=== PATIENT | male | born 1965 | race Caucasian/White ===

== ENCOUNTER 2017-03-16 09:08 | Day surgery (SDC) | payer OTHER ==
[2017-03-15 15:09] VITALS: BMI 22.1
[2017-03-16] MEDS ORDERED: LIDOCAINE HCL/PF 2% SDV 5ML VIAL ONE (09:56)
[2017-03-16] MEDS ORDERED: PROPOFOL 20 ML ONE ×2 (09:56)
[2017-03-16 10:32] VITALS: TEMP 97.6
[2017-03-16 11:26] VITALS: BP 135/87; PULSE 63
== END 2017-03-16 11:26 | disposition home or self-care (01) ==
LOC: JASU-ENDO 09:08
PROVIDERS: ATTEND Internal Medicine Gastroenterology
PROC: 0DJD8ZZ Inspection of Lower Intestinal Tract, Via Natural or Artificial Opening Endoscopic (ICD-10-PCS; principal; 2017-03-16 10:00)
DX: Z12.11 Encounter for screening for malignant neoplasm of colon (principal); Z21 Asymptomatic human immunodeficiency virus [HIV] infection status

== ENCOUNTER 2022-12-03 12:46 | Emergency (ER) | payer OTHER ==
[2022-12-03 12:52] VITALS: BP 165/92; PULSE 78; RESP 18; TEMP 98.8; BMI 23.8
[2022-12-03 14:58] LABS: BASO % 0.3 % (0-2.0); EOS % 2.1 % (0-4.5); HEMATOCRIT 40.7 % (35.4-49); HEMOGLOBIN 13.5 GM/dL (11.7-16.9); LYMPH % 21.6 % (8-40); MCH 31.4 pg (25.7-33.7); MCHC 33.2 g/dl (32.0-35.9); MEAN CELL VOLUME 94.7 fl (80-96); MEAN PLT VOLUME 7.4 fl (7.5-11.1); MONO % 10.3 % (3.8-10.2); NEUT % 65.7 % (42.8-82.8); PLATELET COUNT 269 10^3/uL (134-434); RDW 13.3 % (11.9-15.9); WHITE BLOOD COUNT 5.5 K/mm3 (4.0-10.0)
[2022-12-03 15:47] LABS: POTASSIUM 3.8 mmol/L (3.5-5.1)
[2022-12-03 15:49] LABS: ALBUMIN 4.3 g/dl (3.4-5.0); BLOOD UREA NITROGEN 15.8 mg/dL (7-18)
[2022-12-03 15:54] LABS: BILIRUBIN,TOTAL 0.5 mg/dL (0.2-1); TOT PROT 8.2 g/dl (6.4-8.2)
== END 2022-12-03 19:41 | disposition home or self-care (01) ==
LOC: JERFT 12:46 → JER 12:46
DX: L03.116 Cellulitis of left lower limb (principal); R22.42 Localized swelling, mass and lump, left lower limb; R50.9 Fever, unspecified; R53.1 Weakness
CPT/HCPCS: 36415; 80053; 85025; 86359; 86360; 87040; 87536; 99283-25